=== PATIENT | female | born 2000 | race Caucasian/White ===

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

== ENCOUNTER 2021-02-15 19:35 | Emergency (ER) | payer OTHER, SELFPAY ==
[2021-02-15 19:47] VITALS: BP 148/73; PULSE 86; RESP 86; TEMP 37.6; O2SAT 100
--- NOTE | 2021-02-15 20:19 | ED.URI ---
HPI - URI/Sore Throat General Chief Complaint: Upper Respiratory Infection Stated Complaint: sinus congestion and loss of voice Source: patient and RN notes reviewed Mode of arrival: ambulatory History of Present Illness HPI Narrative: This is a 21-year-old female that presented to urgent care with complaints of postnasal drainage, sinus congestion and hoarseness that developed on Monday patient cold and flu at home with no results. The patient denies SOB, CP, palpitation, extremity numbness, lightheadedness, dizziness, constipation, diarrhea, chills, or fever. Related Data Home Medications Medication Instructions Recorded Confirmed metformin 500 mg PO TID 07/04/20 02/15/21 norethindrone-e.estradiol-iron 1 tablet PO DAILY 02/15/21 02/15/21 [Aurovela 24 Fe] Allergies Allergy/AdvReac Type Severity Reaction Status Date / Time No Known Allergies Allergy Verified 07/04/20 09:34 Review of Systems Review of Systems: A 14 organ system Review of Systems was performed and pertinent positives included in the HPI, otherwise remaining ROS is negative. [facility] Past Medical History Medical History No acute medical problems Family History Family History Other No acute medical problems Social History Social History Smoking status: Never smoker Alcohol intake: never Exam Narrative: GENERAL: This is a well-nourished, well-developed patient, in no apparent distress. HEAD: normocephalic, atraumatic. EYES: PERRL. Sclera clear/white. Vision is grossly intact. EARS: External ears normal, auditory canals clear and without drainage, TMs normal without perforation. Hearing grossly intact. NOSE: External nose normal with no obvious nasal discharge, nares without redness, no rhinorrhea. THROAT: Mucous membranes moist, posterior pharynx edema with erythematous NECK: Neck supple, non-tender without lymphadenopathy, masses or thyromegaly. CARDIOVASCULAR: Regular rate and rhythm without murmurs, gallops, or rubs. RESPIRATORY: Clear to auscultation. Breath sounds equal bilaterally. No wheezes, rales, or rhonchi. GASTROINTESTINAL: Abdomen soft, non-tender, nondistended. Bowel sounds are active. No hepato-splenomegaly, or palpable masses. No guarding. SKIN: warm, intact with no suspicious lesions or rash, good texture and turgor. NEURO: awake, alert, and oriented to person, place and time. There were no obvious focal neurologic abnormalities. Steady gait EXTREMITIES: Normal range of motion. No edema. No calf tenderness. Negative Homans sign bilaterally. BACK: Nontender without deformity or crepitance. No flank tenderness. Course Course Emergency Course: Patient will discharge home with Augmentin, Flonase and Claritin Vital Signs Vital signs: Vital Signs Temperature 99.7 F H 02/15/21 19:47 Pulse Rate 86 02/15/21 19:47 Respiratory Rate 86 H 02/15/21 19:47 Blood Pressure 148/73 H 02/15/21 19:47 Pulse Oximetry 100 02/15/21 19:47 Temperature 99.7 F H 02/15/21 19:47 Pulse Rate 86 02/15/21 19:47 Respiratory Rate 86 H 02/15/21 19:47 Blood Pressure 148/73 H 02/15/21 19:47 Pulse Oximetry 100 02/15/21 19:47 MDM - URI/Sore Throat Differential Diagnosis Differential diagnosis: Likely upper respiratory infection, sinusitis, viral infection, influenza and pharyngitis Discharge Plan Discharge Clinical Impression: Sinusitis Qualifiers: Sinusitis location: maxillary Chronicity: acute Recurrence: non-recurrent Qualified Code(s): J01.00 - Acute maxillary sinusitis, unspecified Patient Disposition: Home, Self-Care Condition: Stable Instructions: Antibiotic Form, Sinusitis (ED) Additional Instructions: What are the symptoms of sinusitis? - Common symptoms of sinusitis include: ?Stuffy or blocked nose ?Thick yellow or green discha
== END 2021-02-15 20:25 | disposition home or self-care (01) ==
PROVIDERS: Emergency Provider Nurse Practitioner
DX: J01.00 Acute maxillary sinusitis, unspecified (principal); Z20.822 Contact with and (suspected) exposure to COVID-19
CPT/HCPCS: 99213; G0463

== ENCOUNTER 2021-06-15 11:49 | Outpatient (CLI) | payer OTHER, SELFPAY ==
[2021-06-15 12:14] LABS: Basophils Percent Auto 0.3 % (0.2-1.2); Eosinophils Absolute Auto 0.1 K/mm3 (0-0.3); Eosinophils Percent Auto 1.2 % (0-4.4); Hematocrit 41.9 % (37.0-47.0); Hemoglobin 13.8 g/dL (12.0-15.0); Immature Granulocyte Absolute 0.02 K/mm3 (0.00-0.031); Immature Granulocyte Percent A 0.3 % (0-0.5); Lymphocytes Absolute Auto 2.15 K/mm3 (0.9-3.2); Lymphocytes Percent Auto 36.4 % (18.3-44.2); Mean Corpuscular HGB Conc 32.9 g/dl (32-36); Mean Corpuscular Hemoglobin 25.8 pg (26-34); Mean Corpuscular Volume 78.3 fl (80-100); Mean Platelet Volume 10.3 fl (7.4-10.4); Monocytes Absolute Auto 0.4 K/mm3 (0.1-0.6); Monocytes Percent Auto 7.4 % (2.6-8.5); Neutrophils Absolute Auto 3.2 K/mm3 (1.3-6.7); Neutrophils Percent Auto 54.4 % (45.5-73.1); Platelet Count Result 384 k/mm3 (150-375); Red Blood Count 5.35 M/mm3 (4.2-5.4); Red Cell Distribution Width 12.6 % (11.5-14.5); White Blood Count 5.9 K/mm3 (4.5-10.0)
[2021-06-15 12:17] LABS: Alanine Aminotransferase 21 U/L (4-35); Albumin Level 4.6 g/dL (3.5-5.1); Alkaline Phosphatase 90 U/L (38-126); Anion Gap 10 mmol/L (8-16); Aspartate Amino Transferase 25 U/L (14-36); Bilirubin,Total 0.5 mg/dL (0.2-1.3); Blood Urea Nitrogen 9 mg/dL (7-17); Calcium 9.1 mg/dL (8.4-10.2); Carbon Dioxide 23 mmol/L (22-30); Chloride 105 mmol/L (98-107); Estimated Glomerular Filt Rate > 60; Glucose 122 mg/dL (65-110); Potassium 4.3 mmol/L (3.4-5.0); Sodium 138 mmol/L (137-145)
[2021-06-15 12:21] LABS: Hemoglobin A1C 5.2 % (<5.7)
[2021-06-15 13:32] LABS: Erythrocyte Sedimentation Rate 18 mm/hr (0-20)
== END 2021-06-15 11:50 | disposition home or self-care (01) ==
LOC: ANHLAB 11:53
DX: H53.9 Unspecified visual disturbance (principal); E16.1 Other hypoglycemia
CPT/HCPCS: 36415; 80053; 83036; 85025; 85652

== ENCOUNTER 2021-07-05 10:37 | Emergency (ER) | payer OTHER, SELFPAY ==
[2021-07-05 10:59] VITALS: BP 132/69; PULSE 98; RESP 20; TEMP 36.8; O2SAT 100
--- NOTE | 2021-07-05 11:06 | ED.URI ---
HPI - URI/Sore Throat General Chief Complaint: Upper Respiratory Infection Stated Complaint: Sore Throat Time Seen by Provider: 07/05/21 11:06 Source: patient and RN notes reviewed Mode of arrival: ambulatory Limitations: no limitations History of Present Illness HPI Narrative: 21-year-old female presented for complaint of sore throat and cough for 1 week. She states she had a negative COVID test 8 days ago, was treated for an ear infection with cefdinir on 06/27/2021 has completed the course. She denies associated shortness of breath, wheezing, nausea, vomiting, diarrhea, fever or chills. She is taking DayQuil for symptoms. Denies sick contacts. MD elicited complaint: sore throat Related Data Home Medications Medication Instructions Recorded Confirmed metformin 500 mg PO TID 07/04/20 02/15/21 norethindrone-e.estradiol-iron 1 tablet PO DAILY 02/15/21 02/15/21 [Aurovela 24 Fe] Allergies Allergy/AdvReac Type Severity Reaction Status Date / Time No Known Allergies Allergy Verified 07/05/21 10:54 Review of Systems Review of Systems: CONSTITUTIONAL: denies malaise, chills, sweats, fever EYES: Denies visual changes, redness, or discharge ENT: Reports rhinorrhea, congestion, sore throat CARDIOVASCULAR: Denies chest pain, palpitations, edema RESPIRATORY: denies sob/wheezing GASTROINTESTINAL: Denies abdominal pain, nausea, vomiting, diarrhea SKIN: Denies rash or itching MUSCULOSKELETAL: denies myalgia NEUROLOGIC: Denies headache PMFSH Past Medical History Medical History No acute medical problems Family History Family History Other No acute medical problems Social History Social History Smoking status: Never smoker Alcohol intake: never Exam Narrative: GENERAL: Ill-appearing, nontoxic HEAD: Normocephalic EYES: conjunctivae clear ENT: Mucous membranes moist. TM pearly riley with dull light reflex bilaterally; no tragal tenderness. Oropharynx erythematous, tonsils enlarged 1+, with white patches exudate vs stone; no drooling, no hoarseness, no trismus, uvula midline. No tripod positioning, muffled voice, soft palate or pharyngeal wall bulging NECK: Supple. No lymphadenopathy CHEST: Clear to auscultation, breath sounds equal. No wheezing, rhonchi, rales, or stridor. No respiratory distress, speaks in full sentences. HEART: Regular rate and rhythm. No murmur heard. SKIN: Warm, dry, no rash. NEURO: Alert and oriented x3. PSYCH: Normal mood and affect Course Course Emergency Course: Patient is aware of diagnosis, understands and agrees to treatment plan. Anticipatory guidance given. Patient agrees to follow-up as directed and is aware of reasons to seek care at the emergency department. Portions of this record may have been created with voice recognition software Level of Care: Express Care Visit Vital Signs Vital signs: Vital Signs Temperature 98.2 F 07/05/21 10:59 Pulse Rate 98 07/05/21 10:59 Respiratory Rate 20 07/05/21 10:59 Blood Pressure 132/69 07/05/21 10:59 Pulse Oximetry 100 07/05/21 10:59 Temperature 98.2 F 07/05/21 10:59 Pulse Rate 98 07/05/21 10:59 Respiratory Rate 20 07/05/21 10:59 Blood Pressure 132/69 07/05/21 10:59 Pulse Oximetry 100 07/05/21 10:59 reviewed MDM - URI/Sore Throat MDM Narrative Medical decision making narrative: Strep negative. She is advised on supportive treatment. We will send for culture. Verbalizes understanding Differential Diagnosis Differential diagnosis: Likely upper respiratory infection, sinusitis, viral infection and pharyngitis Lab Data Attestation: I reviewed the patient's lab results. Discharge Plan Discharge Clinical Impression: Acute tonsillitis Qualifiers: Pharyngitis/tonsillitis etiology: unspecified etiology Qualified Code(s):
== END 2021-07-05 11:25 | disposition home or self-care (01) ==
PROVIDERS: Emergency Provider Nurse Practitioner Family
DX: J03.90 Acute tonsillitis, unspecified (principal)
CPT/HCPCS: 87081; 87880; 99213; G0463

== ENCOUNTER 2022-06-22 12:08 | Emergency (ER) | payer OTHER, SELFPAY ==
[2022-06-22 12:15] VITALS: BP 150/68; PULSE 86; RESP 16; TEMP 36.9; O2SAT 100
--- NOTE | 2022-06-22 12:16 | ED.GENADULT ---
HPI - General Adult General Chief complaint: Nausea/Vomiting/Diarrhea Stated complaint: nausea Source: patient and RN notes reviewed History of Present Illness HPI narrative: 22-year-old female presents to urgent care with complaints of nausea and vomiting since yesterday. Patient states she woke up this morning around 3:00 a.m. with a fever last night. Patient denies any abdominal pain, diarrhea, or any close sick contacts that she knows of. Patient states she is able to keep down small amounts of food and liquid continues to be nauseous. Patient does admit to having two menstrual periods this month which is abnormal for her. Some parts of this dictation were generated by voice recognition software and may contain typographical and/or grammatical inaccuracies. Related Data Home Medications Medication Instructions Recorded Confirmed norethindrone 1 mg-ethinyl 1 tablet PO DAILY 02/15/21 06/22/22 estradiol 20 mcg (24)-iron 75 mg (4) tablet (Aurovela Fe) liraglutide 0.6 mg/0.1 mL (18 mg/3 mg subcut 06/22/22 mL) subcutaneous pen injector (Victoza 3-Scout) metformin 500 mg tablet mg 06/22/22 norethindrone 1 mg-ethinyl tablet 06/22/22 estradiol 20 mcg (24)-iron 75 mg (4) tablet (Junel ) Allergies Allergy/AdvReac Type Severity Reaction Status Date / Time No Known Allergies Allergy Verified 06/22/22 12:24 Review of Systems Review of Systems: Pertinent positives and pertinent negatives per HPI. PMFSH Past Medical History Medical History No acute medical problems Family History Family History Other No acute medical problems Social History Social History Smoking status: Never smoker Alcohol intake: never Comments At the time of my signature, I reviewed and agree with the nursing past medical, surgical, social, and family history. There is no relevant family history pertinent to the patient complaint. Exam Narrative: GENERAL: This is a well-nourished, well-developed patient, in no apparent distress. HEAD: normocephalic, atraumatic. EYES: Sclera clear/white. Vision is grossly intact. EARS: External ears normal, auditory canals clear and without drainage. Hearing grossly intact. NOSE: External nose normal with no obvious nasal discharge, nares without redness, no rhinorrhea. THROAT: Mucous membranes moist, posterior pharynx clear. NECK: Neck supple, non-tender without lymphadenopathy, masses or thyromegaly. CARDIOVASCULAR: Regular rate and rhythm without murmurs, gallops, or rubs. RESPIRATORY: Clear to auscultation. Breath sounds equal bilaterally. No wheezes, rales, or rhonchi. GASTROINTESTINAL: Abdomen soft, non-tender, nondistended. Bowel sounds are active. No hepato-splenomegaly, or palpable masses. No guarding. SKIN: warm, intact with no suspicious lesions or rash, good texture and turgor. NEURO: awake, alert, and oriented to person, place and time. There were no obvious focal neurologic abnormalities. Course Course Level of Care: Express Care Visit Vital Signs Vital signs: Vital Signs Temperature 98.4 F 06/22/22 12:15 Pulse Rate 86 06/22/22 12:15 Respiratory Rate 16 06/22/22 12:15 Blood Pressure 150/68 H 06/22/22 12:15 Pulse Oximetry 100 06/22/22 12:15 Oxygen Delivery Room Air 06/22/22 12:15 Temperature 98.4 F 06/22/22 12:15 Pulse Rate 86 06/22/22 12:15 Respiratory Rate 16 06/22/22 12:15 Blood Pressure 150/68 H 06/22/22 12:15 Pulse Oximetry 100 06/22/22 12:15 Oxygen Delivery Room Air 06/22/22 12:15 Reviewed Medical Decision Making MDM Narrative Medical decision making narrative: You've been diagnosed with a viral illness that would not require antibiotics at this time. Take the Zofran ODT at home as directed for nausea and get plenty of fluids. I
== END 2022-06-22 12:55 | disposition home or self-care (01) ==
PROVIDERS: Emergency Provider Nurse Practitioner Family
DX: K52.9 Noninfective gastroenteritis and colitis, unspecified (principal); E28.2 Polycystic ovarian syndrome; Z86.16 Personal history of COVID-19
CPT/HCPCS: 81025; 99213; G0463

== ENCOUNTER 2023-01-17 09:41 | Emergency (ER) | payer OTHER, SELFPAY ==
[2023-01-17 09:48] VITALS: BP 146/73; PULSE 80; RESP 20; TEMP 36.8; O2SAT 100
--- NOTE | 2023-01-17 09:57 | ED.URI ---
HPI - URI/Sore Throat General Chief Complaint: Upper Respiratory Infection Stated Complaint: Cough/Chest Congestion Source: patient and RN notes reviewed History of Present Illness HPI Narrative: 22 yo F presents to urgent care with complaints of cough and congested x 2 weeks. Pt states it started in her face and has moved to her chest about a week ago. Pt reports her cough is worse at nighttime and she is feeling SOB at times. Pt states she has heard herself wheeze sometimes too. Denies any fevers, chills chest pain, N/V/D, or pain anywhere. Pt has been taking Dayquil at home. Related Data Home Medications Medication Instructions Recorded Confirmed norethindrone 1 mg-ethinyl 1 tablet PO DAILY 02/15/21 06/22/22 estradiol 20 mcg (24)-iron 75 mg (4) tablet (Aurovela 24 Fe) liraglutide 0.6 mg/0.1 mL (18 mg/3 mg subcut 06/22/22 mL) subcutaneous pen injector ([employer]Pets 3-Scout) metformin 500 mg tablet mg 06/22/22 norethindrone 1 mg-ethinyl tablet 06/22/22 estradiol 20 mcg (24)-iron 75 mg (4) tablet (Junel Fe 24) Allergies Allergy/AdvReac Type Severity Reaction Status Date / Time No Known Allergies Allergy Verified 06/22/22 12:24 Review of Systems Review of Systems: Pertinent positives and pertinent negatives per HPI. [facility] Past Medical History Medical History No acute medical problems Family History Family History Other No acute medical problems Social History Social History Smoking status: Never smoker Alcohol intake: never Comments At the time of my signature, I reviewed and agree with the nursing past medical, surgical, social, and family history. There is no relevant family history pertinent to the patient complaint. Exam Narrative: GENERAL: This is a well-nourished, well-developed patient, in no apparent distress. HEAD: normocephalic, atraumatic. EYES: Sclera clear/white. Vision is grossly intact. EARS: External ears normal, auditory canals clear and without drainage. Hearing grossly intact. NOSE: External nose normal with no obvious nasal discharge, nares without redness, no rhinorrhea. THROAT: Mucous membranes moist, posterior pharynx clear. NECK: Neck supple, non-tender without lymphadenopathy, masses or thyromegaly. CARDIOVASCULAR: Regular rate and rhythm without murmurs, gallops, or rubs. RESPIRATORY: Clear to auscultation. Breath sounds equal bilaterally. No wheezes, rales, or rhonchi. Pt has congested cough in exam room. SKIN: warm, intact with no suspicious lesions or rash, good texture and turgor. NEURO: awake, alert, and oriented to person, place and time. There were no obvious focal neurologic abnormalities. EXTREMITIES: No clubbing, cyanosis, or edema. No joint tenderness, effusion, or edema noted. BACK: Nontender without deformity or crepitus. No flank tenderness. Course Course Level of Care: Express Care Visit Vital Signs Vital signs: Vital Signs Temperature 98.2 F 01/17/23 09:48 Pulse Rate 80 01/17/23 09:48 Respiratory Rate 20 01/17/23 09:48 Blood Pressure 146/73 H 01/17/23 09:48 Pulse Oximetry 100 01/17/23 09:48 Oxygen Delivery Room Air 01/17/23 09:48 Temperature 98.2 F 01/17/23 09:48 Pulse Rate 80 01/17/23 09:48 Respiratory Rate 20 01/17/23 09:48 Blood Pressure 146/73 H 01/17/23 09:48 Pulse Oximetry 100 01/17/23 09:48 Oxygen Delivery Room Air 01/17/23 09:48 Reviewed MDM - URI/Sore Throat MDM Narrative Medical decision making narrative: Take steroids as directed. May use the inhaler every 4-6 hours as needed for coughing. Increase fluids at home. Avoid any and all smoke. May use a humidifier in the bedroom. Increase your Vitamin C. Follow-up with personal physician in 2-5 days. Go to the ER for any new or worsening symptoms.
== END 2023-01-17 10:27 | disposition home or self-care (01) ==
PROVIDERS: Emergency Provider Nurse Practitioner Family
DX: J40 Bronchitis, not specified as acute or chronic (principal); J32.9 Chronic sinusitis, unspecified
CPT/HCPCS: 99213; G0463